=== PATIENT | female | born 1995 | race Hispanic/Latino ===

== ENCOUNTER 2022-11-03 08:34 | Emergency (ER) | payer SELFPAY ==
[~2022-11-03] VITALS: Ht 157.5 cm; Wt 92.1 kg
[2022-11-03] MEDS ORDERED: PREDNISONE20 MG PO (10:40)
[2022-11-03] MEDS ORDERED: VENTOLIN HFA18 GM INH (10:40)
[2022-11-03] MEDS ORDERED: AZITHROMYCIN250 MG PO (10:40)
== END 2022-11-03 10:47 | disposition home or self-care (01) ==
LOC: ER 08:46
DX: R05.9 Cough, unspecified (principal); J40 Bronchitis, not specified as acute or chronic
CPT/HCPCS: 0223U; 36415; 71045; 87400; 99282

== ENCOUNTER 2024-05-13 09:17 | Emergency (ER) | payer SELFPAY ==
[~2024-05-13] VITALS: Ht 157.5 cm; Wt 92.1 kg
[~2024-05-13 09:17] MED LIST: AZITHROMYCIN250 MG PO; PREDNISONE20 MG PO; VENTOLIN HFA18 GM INH
[2024-05-13 09:35] VITALS: TEMP 97.8
[2024-05-13 09:45] VITALS: PULSE 64; RESP 16
[2024-05-13] MEDS ORDERED: METHOCARBAMOL750 MG PO (09:56)
[2024-05-13] MEDS: KETOROLAC TROMETHAMINE 60 MG/2 ML VIAL IM ONE (10:02)
[2024-05-13 10:28] VITALS: BP 114/94; PULSE 99; RESP 16; O2SAT 99
== END 2024-05-13 10:28 | disposition home or self-care (01) ==
LOC: ER 09:22
DX: G44.209 Tension-type headache, unspecified, not intractable (principal); R42 Dizziness and giddiness; R11.0 Nausea
CPT/HCPCS: 99283; J1885

== ENCOUNTER 2024-07-04 11:06 | Emergency (ER) | payer SELFPAY ==
[~2024-07-04] VITALS: Ht 157.5 cm; Wt 92.1 kg
[~2024-07-04 11:06] MED LIST changes: +METHOCARBAMOL750 MG PO
[2024-07-04 11:18] VITALS: PULSE 89; RESP 17; TEMP 97; O2SAT 99
[2024-07-04] MEDS: KETOROLAC TROMETHAMINE 60 MG/2 ML VIAL IM ONE (11:42)
[2024-07-04] MEDS: ACETAMIN/BUTALBITAL/CAFFEINE TAB PO ONE (11:44)
[2024-07-04] MEDS ORDERED: FIORICET 50-301 EACH PO (12:33)
== END 2024-07-04 12:40 | disposition home or self-care (01) ==
LOC: ER 11:16
DX: R51.9 Headache, unspecified (principal); H92.02 Otalgia, left ear; M62.838 Other muscle spasm
CPT/HCPCS: 70450; 99283; J1885

== ENCOUNTER 2024-11-28 13:37 | Emergency (ER) | payer SELFPAY ==
[~2024-11-28] VITALS: Ht 157.5 cm; Wt 92.1 kg
[~2024-11-28 13:37] MED LIST changes: +FIORICET 50-301 EACH PO
[2024-11-28 14:09] VITALS: PULSE 78; RESP 15; TEMP 98.4
[2024-11-28 15:26] VITALS: BP 120/70; PULSE 74; RESP 16; TEMP 98.5; O2SAT 98
== END 2024-11-28 15:15 | disposition home or self-care (01) ==
LOC: ER 13:50
DX: N64.4 Mastodynia (principal)
CPT/HCPCS: 99282